=== PATIENT | female | born 1990 ===

== ENCOUNTER 2017-07-12 02:30 | Emergency (ER) | payer SELFPAY ==
[2017-07-12 02:51] VITALS: O2SAT 99
[2017-07-12] MEDS ORDERED: Lidocaine 2% Inj (20ml) INFIL STA (03:06)
[2017-07-12] MEDS ORDERED: Bacitracin 500 Units/gm Oint Foilpak UD TOP STA (03:06)
[2017-07-12] MEDS ORDERED: Tetanus/Diphtheria Toxoids 0.5 ml Syringe IM ONE ×2 (03:06→03:11)
[2017-07-12] MEDS ORDERED: Lidocaine 2% MPF (5 ml) Inj ONE (03:10)
[2017-07-12] MEDS ORDERED: Bacitracin 500 Units/gm Oint Foilpak UD ONE (03:10)
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
[2017-07-12 04:25] VITALS: BP 124/89; PULSE 81; RESP 16; TEMP 98.4
== END 2017-07-12 04:25 | disposition home or self-care (01) ==
LOC: C.ER 02:30 → SUPCPDRO 02:30 → C.ER 04:25
DX: S61.512A Laceration without foreign body of left wrist, initial encounter (principal); W45.8XXA Other foreign body or object entering through skin, initial encounter; Y92.89 Other specified places as the place of occurrence of the external cause

== ENCOUNTER 2017-07-23 09:32 | Emergency (ER) | payer MEDICAID, OTHER ==
[2017-07-23 09:37] VITALS: BP 108/71; PULSE 60; RESP 20; TEMP 98.3; O2SAT 100
--- NOTE | 2017-07-23 10:09 | C.PDOC ---
History Of Present Illness 29-year-old female, presents to the emergency department for wound check. Patient was seen in ED on 07/12 and had sutures placed to the left wrist. She denies any pain, new injuries, fever, nausea/vomiting, numbness/weakness or any other associated symptoms. No other complaints at this time. Time Seen by Provider: 07/23/17 09:42 Chief Complaint (Nursing): Wound Check History Per: Patient History/Exam Limitations: no limitations Onset/Duration Of Symptoms: Days Ago (11) Past Medical History Reviewed: Historical Data, Nursing Documentation, Vital Signs Vital Signs: Last Vital Signs Temp 98.3 F 07/23/17 09:36 Pulse 60 07/23/17 09:36 Resp 20 07/23/17 09:36 BP 108/71 07/23/17 09:36 Pulse Ox 100 07/23/17 10:36 Family History: States: No Known Family Hx - Social History Hx Alcohol Use: Yes Hx Substance Use: No - Immunization History Hx Tetanus Toxoid Vaccination: No Hx Influenza Vaccination: No Hx Pneumococcal Vaccination: No Review Of Systems Constitutional: Negative for: Fever Gastrointestinal: Negative for: Nausea, Vomiting Musculoskeletal: Positive for: Other (evaluation of sutures to L wrist. ) Skin: Negative for: Rash Neurological: Negative for: Weakness, Numbness Physical Exam - Physical Exam Appears: Well, Non-toxic, No Acute Distress Skin: Normal Color, Warm, Dry, No Rash Head: Atraumatic Eye(s): bilateral: Normal Inspection Nose: Normal Lips: Normal Appearing Neck: Normal ROM Respiratory: No Accessory Muscle Use (no respiratory distress) Extremity: Normal ROM, No Tenderness, Capillary Refill (<2 seconds), No Deformity, No Swelling, Other (volar aspect of left wrist with [address] Well healing, no erythema, drainage or warmth. Wound is slightly open) Pulses: Left Radial: Normal, Right Radial: Normal Neurological/Psych: Oriented x3, Normal Speech ED Course And Treatment O2 Sat by Pulse Oximetry: 100 (RA) Pulse Ox Interpretation: Normal Medical Decision Making Medical Decision Makin sutures removed from volar aspect of left wrist. Applied steri-strips, snf wrist was wrapped Patient tolerated well. She is instructed to f.u outpatient with hand surgeon in 1-2 days without fail. Pt agreeable with plan. Disposition Counseled Patient/Family Regarding: Diagnosis, Need For Followup - Disposition Referrals: [facility] at [facility] [Outside] Disposition: HOME/ ROUTINE Disposition Time: 10:06 Condition: STABLE Additional Instructions: Please follow up in the clinic for a hand surgeon referral. Return to the Emergency Department to remove the rest of the sutures in 5 days. Forms: [facility] (Dominican), General Discharge Instructions - Clinical Impression Clinical Impression: Wrist laceration - Scribe Statement The provider has reviewed the documentation as recorded by the Scribe (Lakisha Cardoso) All medical record entries made by the Scribe were at my direction and personally dictated by me. I have reviewed the chart and agree that the record accurately reflects my personal performance of the history, physical exam, medical decision making, and the department course for this patient. I have also personally directed, reviewed, and agree with the discharge instructions and disposition.
== END 2017-07-23 10:18 | disposition home or self-care (01) ==
LOC: C.ER 09:32
DX: S61.512D Laceration without foreign body of left wrist, subsequent encounter (principal); W45.8XXD Other foreign body or object entering through skin, subsequent encounter

== ENCOUNTER 2017-07-28 10:31 | Emergency (ER) | payer MEDICAID, OTHER ==
[2017-07-28 10:48] VITALS: BP 124/76; PULSE 78; RESP 18; TEMP 98.2; O2SAT 99
--- NOTE | 2017-07-28 10:51 | C.PDOC ---
History Of Present Illness 27yo female, presents to ED for suture removal from her left wrist. Patient states she had 13 sutures placed on 07/12 and had 7 sutures removed 6 days ago. She states the wound has been healing well and denies any fever, chills, swelling, purulent discharge from wound. She has no other complaints. Time Seen by Provider: 07/28/17 10:40 Chief Complaint (Nursing): Suture/Staple Removal History Per: Patient History/Exam Limitations: no limitations Location Of Injury: Left: Hand (wrist) Quality Of Symptoms: denies: Painful, Itching, Swollen, Draining Additional History Per: Patient Past Medical History Reviewed: Historical Data, Nursing Documentation, Vital Signs Vital Signs: Last Vital Signs Temp 98.2 F 07/28/17 10:35 Pulse 78 07/28/17 10:35 Resp 18 07/28/17 10:35 BP 124/76 07/28/17 10:35 Pulse Ox 99 07/28/17 10:51 - Medical History PMH: No Chronic Diseases Surgical History: No Surg Hx Family History: States: No Known Family Hx, Unknown Family Hx - Social History Hx Alcohol Use: Yes Hx Substance Use: No - Immunization History Hx Tetanus Toxoid Vaccination: Yes Hx Influenza Vaccination: No Hx Pneumococcal Vaccination: No Review Of Systems Except As Marked, All Systems Reviewed And Found Negative. Constitutional: Negative for: Fever, Chills Skin: Positive for: Other (healing laceration to left wrist, 6 sutures requiring removal) Physical Exam - Physical Exam Appears: Non-toxic, No Acute Distress Skin: Warm, Dry Cardiovascular: Rhythm Regular Extremity: Normal ROM, No Tenderness, No Deformity, No Swelling, Other ([address] on left volar distal wrist. ) Neurological/Psych: Oriented x3 ED Course And Treatment O2 Sat by Pulse Oximetry: 99 (RA) Pulse Ox Interpretation: Normal Medical Decision Making Medical Decision Making: Impression: Suture removal Plan: -- Sutures removed using 11 blade. Patient tolerated procedure well. Bacitracin applied and patient instructed to apply bacitracin on wound at home as well. Stable for discharge home. Disposition Counseled Patient/Family Regarding: Diagnosis, Need For Followup - Disposition Referrals: [facility] at [facility] [Outside] Disposition: HOME/ ROUTINE Disposition Time: 10:50 Condition: STABLE Additional Instructions: follow up with medical clinic within 2 days call to make an appointment take medications as prescribed return to ER if symptoms worsens or progress Instructions: Stitches Removal Forms: [facility] (Italian), General Discharge Instructions - Clinical Impression Clinical Impression: Removal of suture - Scribe Statement The provider has reviewed the documentation as recorded by the Scribe (Jenelle Lantigua) Provider Attestation: All medical record entries made by the Scribe were at my direction and personally dictated by me. I have reviewed the chart and agree that the record accurately reflects my personal performance of the history, physical exam, medical decision making, and the department course for this patient. I have also personally directed, reviewed, and agree with the discharge instructions and disposition.
[2017-07-28] MEDS ORDERED: Bacitracin 500 Units/gm Oint Foilpak UD ONE (10:58)
== END 2017-07-28 11:02 | disposition home or self-care (01) ==
LOC: C.ER 10:31
DX: Z48.02 Encounter for removal of sutures (principal)